=== PATIENT | female | born 1950 | race Caucasian/White ===

== ENCOUNTER 2019-03-12 14:11 | Emergency (ER) | payer MEDICARE, MEDICAID, SELFPAY ==
[2019-03-12] VITALS (39 sets, daily range): BP systolic 105–182; BP diastolic 50–168; PULSE 65–153; RESP 14–34; TEMP 36.6; O2SAT 92–98
--- NOTE | 2019-03-12 14:31 | ED.GENADUL_ITS ---
Discharge Plan Disposition Patient Disposition: HOME Condition: Improving Discharge Details Chief Complaint: Palpitatns Clinical Impression: Pneumonia Primary Care Provider: Ursula Gutierrez ED Provider: Juan Ding Home Meds and New Rx's Prescriptions: New amoxicillin-pot clavulanate 875-125 mg tablet 1 tab PO BID 10 Days Qty: 20 RF: 0 Continued cilostazol 100 mg Tablet 100 mg PO BID RF: 0 sucralfate 1 gram Tablet 1 g PO QID PRNRF: 0 clonazepam 0.5 mg Tablet 0.5 mg PO BID PRNRF: 0 loperamide 2 mg Tablet 6 mg PO PRN PRNRF: 0 diphenoxylate-atropine 2.5-0.025 mg Tablet 1 tab PO QID PRNRF: 0 simvastatin 40 mg Tablet 40 mg PO HS RF: 0 hydromorphone 2 mg Tablet 2 mg PO Q4H PRN PRNRF: 0 lidocaine HCl 2 % Solution RF: 0 aspirin 81 mg Tablet,Chewable 81 mg PO DAILY RF: 0 allopurinol 300 mg Tablet 300 mg PO DAILY RF: 0 ibuprofen 600 mg Tablet 600 mg PO Q6H PRN PRNRF: 0 oxybutynin chloride 5 mg Tablet 25 mg PO HS RF: 0 glipizide 5 mg Tablet 5 mg PO BID RF: 0 budesonide-formoterol 160-4.5 mcg/actuation Hfa Aerosol Inhaler 1 puff INHALATION BID RF: 0 venetoclax 100 mg Tablet 400 mg PO DAILY RF: 0 duloxetine 30 mg Capsule, Delayed Rel Sprinkle 60 mg PO BID RF: 0 metoprolol succinate 25 mg Tablet Extended Release 24 Hr 125 mg PO DAILY 30 Days Qty: 150 RF: 0 Discharge Instructions Instructions: Pneumonia (ED) Additional Instructions: Your x-ray revealed left sided pneumonia for which we will treat you with Augmentin. I recommend you take an [id number] probiotic or live culture yogurt once a day while on this medicine Please restart your metoprolol as previously prescribed. Follow-up with the cancer center as scheduled. Return or see nearest healthcare facility if you develop shortness of breath, chest pain, or any other acute concerns. Medical Decision Making 69-year-old female presents from the cancer center where he was noted that she had asymptomatic elevated heart rate, history of atrial fibrillation, currently ran out of her metoprolol x2 days. She arrives a temp of 36.6, blood pressure 119/60, pulse of 153, in no acute distress. Differential diagnosis would and include dehydration, electrolyte abnormality, recurrent rapid A. fib due to the lack of beta-blockade. She states her normal pulse is approximately 100-110. Initial IV access difficult, anesthesia consulted for placement of peripheral IV. Subsequently, patient given fluid bolus, IV metoprolol, referred for chest x-ray. After initial dose of IV metoprolol given, the only peripheral IV access became unusable. Subsequently, phlebotomy called for blood draw and patient given her daily dose of oral metoprolol (patient initially stated that this was 50 mg once daily, confirmed with pharmacy) Pulse corrected to high 90s which she affirms is near her baseline, oxygenation 95%. Chest x-ray reveals left upper lobe and left lower lobe infiltrate. There is no comparison available. The patient does note ongoing chronic production of sputum, she states it has changed in character somewhat to a green color over 1 week's time. Therefore, I feel it is most reasonable to treat her with a course of antibiotics. She is stable and improving, heart rate is at baseline, she is appropriate for discharge to home. ECG Data Attestation: I personally reviewed and interpreted this ECG (s) as follows: Interpretation: Rapid atrial fibrillation with a rate of 140, the QRS is narrow, there is nonspecific ST segment changes but no significant ST elevation present. HPI General Mode of arrival: ambulatory . Date/Time Provider Initiated Documentation: 03/12/19 14:18 . Limitations to Documentation: no limitations . Information obtained by: patient . History of Present Illness 69 year old F presents to the emergency department with the chief complaint of Elevated heart rate at [facility], described as moderate, Quality is described as other (Denies discomfort or palpitations), Patient started experiencing this unknown and it has been other (Unknown). No relieving factors improve symptom(s), No exacerbating factors reported . Patient notes denies chest pain, shortness of breath, syncope and weakness. Patient did receive the following treatments prior to arrival, none Related Data Home Medications Medication Instructions Recorded Confirmed allopurinol 300 mg PO DAILY 03/12/19 03/12/19 amoxicillin-pot clavulanate 1 tab PO BID 10 Days #20 tab 03/12/19 aspirin 81 mg PO DAILY 03/12/19 03/12/19 budesonide-formoterol 1 puff INHALATION BID 03/12/19 03/12/19 cilostazol 100 mg PO BID 03/12/19 03/12/19 clonazepam 0.5 mg PO BID PRN 03/12/19 03/12/19 diphenoxylate-atropine 1 tab PO QID PRN 03/12/19 03/12/19 duloxetine 60 mg PO BID 03/12/19 03/12/19 glipizide 5 mg PO BID 03/12/19 03/12/19 hydromorphone 2 mg PO Q4H PRN PRN 03/12/19 03/12/19 ibuprofen 600 mg PO Q6H PRN PRN 03/12/19 03/12/19 lidocaine HCl 03/12/19 loperamide 6 mg PO PRN PRN 03/12/19 03/12/19 metoprolol succinate 125 mg PO DAILY 30 Days #150 tab 03/12/19 oxybutynin chloride 25 mg PO HS 03/12/19 03/12/19 simvastatin 40 mg PO HS 03/12/19 03/12/19 sucralfate 1 g PO QID PRN 03/12/19 03/12/19 venetoclax 400 mg PO DAILY 03/12/19 03/12/19 Previous Rx's Medication Instructions Recorded amoxicillin-pot clavulanate 1 tab PO BID 10 Days #20 tab 03/12/19 metoprolol succinate 125 mg PO DAILY 30 Days #150 tab 03/12/19 Allergies Allergy/AdvReac Type Severity Reaction Status Date / Time codeine Allergy Unverified 03/12/19 14:40 General Stated Complaint: Palpitatns CORKY: 2 Review of Systems Narrative: Not taking metoprolol for 2 days. She denies chest pain, palpitations, shortness of breath. She is receiving radiation therapy to her chest for lymphoma. She states she has a chronic cough with production of sputum. 8 systems reviewed and otherwise negative [facility] Social History Smoking/Tobacco Use Status: Former Tobacco Use Alcohol Intake: never Drug use: Occasionally Substance use type: marijuana Do you feel safe at home: Yes Do you feel safe in your relationship?: Yes Exam Narrative Exam Narrative: GEN: awake, alert, oriented 3. Pleasant, well groomed, interactive. HEAD: Normocephalic, atraumatic ENT: Mucous membranes moist, oropharynx unremarkable, External ear exam unremarkable EYES: PERRL, EOMI NECK: Full ROM, no MARIA EUGENIA, no menigismus CHEST/RESP: Nontender, clear to auscultation bilateral, no wheeze/rhonchi/rales CARDIOVASCULAR: Tachycardic, irregularly irregular, no murmur, rub huy. 2+ Rad pulse bilateral ABDOMEN: Soft, nontender, no mass. +Bowel sounds EXT: Full ROM, no edema, no rash Neuro: Grossly normal neurologic exam, conversant, interactive. Psych: Speech fluent, thoughts congruent, affect normal Course Vital Signs Vital signs: Vital Signs Temperature 36.6 C 03/12/19 14:18 Pulse 153 H 03/12/19 14:18 Respiratory Rate 27 H 03/12/19 14:18 Blood Pressure 119/60 03/12/19 14:18 Pulse Oximetry 92 L 03/12/19 14:18 Temperature 36.6 C 03/12/19 14:18 Temperature Source Temporal Artery Scan 03/12/19 14:18 Pulse 153 H 03/12/19 14:18 Respiratory Rate 27 H 03/12/19 14:18 Respiratory Effort Non-Labored 03/12/19 14:21 Blood Pressure 119/60 03/12/19 14:18 Blood Pressure Position Sitting 03/12/19 14:18 Pulse Oximetry 92 L 03/12/19 14:18 Oxygen Delivery Method Room Air 03/12/19 14:18 Oxygen Flow Rate 0 03/12/19 14:18 Pain Level 0 03/12/19 14:18
[2019-03-12] MEDS: Metoprolol 5 MG/5 ML VIAL IVP (15:44)
[2019-03-12] MEDS: Metoprolol 50 MG TAB PO (16:06)
[2019-03-12 16:17] LABS: Abs Immature Grans 0.41 k/cumm (0.0-0.09); HGB 12.3 g/dL (12.0-15.5); Mean Corp. HGB Concentration 33.2 g/dL (32.0-36.0); Mean Corpuscular Hemoglobin 30.8 pg (27.0-33.0); Mean Corpuscular Volume 92.5 fL (80-95); Mean Platelet Volume 10.1 fL (8.0-11.0); Platelet Count 185 x1000/uL (130-400); RBC Distribution Width 15.1 % (11.7-14.6); White Blood Cell Count 7.39 k/cumm (4.4-10.8)
[2019-03-12 16:36] LABS: ALT 13 U/L (14-59); AST 19 U/L (15-37); Albumin 3.3 g/dL (3.4-5.0); Alkaline Phosphatase 84 U/L (46-116); Anion Gap 10.2 mmol/L (3-11); BUN 14 mg/dL (7-18); Bilirubin, Total 0.3 mg/dL (0.2-1.0); CO2 27.8 mmol/L (21.0-32.0); CREATININE 1.11 mg/dL (0.55-1.02); Calcium 10.8 mg/dL (8.5-10.1); Chloride 103 mmol/L (98-107); Estimated GFR 49.03 (mL/min/1.73m2); Glucose 135 mg/dL (74-106); Magnesium 1.7 mg/dL (1.8-2.4); Sodium 141 mmol/L (136-145); Total Protein 7.3 g/dL (6.4-8.2); Troponin I < 0.05 ng/Ml (<0.06)
--- NOTE | 2019-03-12 16:40 | DI.RAD_ITS ---
EXAM: XR CHEST 2V PA LATERAL CLINICAL HISTORY: elevated HR, hx Lymphoma/Afib COMPARISON: No exams were available for comparison FINDINGS: The heart appears mildly enlarged with multiple sternal sutures and mediastinal vascular clips noted. There are prominent pulmonary interstitial markings bilaterally, acute versus chronic, consider CHF versus pulmonary fibrosis. No prior studies available for comparison. There is also question of superimposed left lower lobe patchy areas of consolidation. IMPRESSION: Diffuse pulmonary interstitial radiodensities, CHF versus fibrosis. Suspect left lower lobe pneumonia. Follow-up films requested following treatment.
--- NOTE | 2019-03-12 16:53 | DI.VRAD_ITS ---
PROCEDURE INFORMATION: Exam: XR Chest, 2 Views Exam date and time: 03/12/2019 4:42 PM Age: 69 years old Clinical indication: Fever; Prior surgery TECHNIQUE: Imaging protocol: XR of the chest Views: 2 views. COMPARISON: No relevant prior studies available. FINDINGS: Lungs: Prominent central pulmonary vasculature with peribronchial thickening. Patchy reticular markings left upper lobe and left base consistent with edema neural or infiltrate. There are no comparison films. Pleural space: Unremarkable. No pleural effusion. No pneumothorax. Heart/Mediastinum: Cardiomegaly. Bones/joints: Sternotomy wires and mediastinal clips are in place. Multilevel degenerative changes of the thoracic spine. IMPRESSION: 1. Left upper lobe and left lower lobe infiltrate. 2. Cardiomegaly with pulmonary vascular congestion. Dictated and Authenticated by: Carol Ann Piper MD. Ordering:JACK Martinez MD
[2019-03-12 17:09] LABS: Absolute Eosinophil Count 0.37 k/cumm (0.0-0.7); Absolute Lymphocyte Count 0.67 k/cumm (1.2-3.4); Absolute Monocyte Count 0.37 k/cumm (0.11-0.7); Absolute Neutrophil Count 5.84 k/cumm (1.2-6.7); Atypical Lymphocytes % 2; Diff Comment Manual Differential; RBC Morphology Normal
[2019-03-12] MEDS: Amoxicillin 875/Clav. 125 TAB PO ×2 (17:28)
[2019-03-12] MEDS: Metoprolol CR 50 MG TABCR PO (17:29)
== END 2019-03-12 17:42 | disposition home or self-care (01) ==
PROVIDERS: Emergency Provider Emergency Medicine; PCP Family Medicine
DX: J18.9 Pneumonia, unspecified organism (principal); C85.90 Non-Hodgkin lymphoma, unspecified, unspecified site
CPT/HCPCS: 36415; 80053; 93005; 96374; 99285; 71046; 83735; 84443; 84484; 85025; 93010